=== PATIENT | female | born 1945 | race Caucasian/White ===

== ENCOUNTER → 2017-05-27 | Outpatient (CLI) | payer MEDICARE ==
[~2017-05-27] MED LIST: ARTIFICIAL TEAR15 ML OP; ASPIRINEC PO; EVISTA60 MG PO; FAMVIR500 MG PO; HCTZ PO; LODINE PO; PREDNISONE PO; VIT E PO; ZANTAC PO
--- NOTE | ~2017-05-27 | CT57 ---
[facility] A Service of [facility] RADIOLOGY TEXT RESULTS PATIENT: JACEK MARX LOCATION: [facility] : 49 UNIT #: [id number] AGE: [address]: ALONDRA LYNNE DO SEX: F ORDER DR: [id number] [facility] [address] [place], [place] [address] [id number] O MR#: [id number] Acc #: [id number] NAME: JACEK MARX : 1945 SEX: F STUDY DATE/TIME: 05/27/2017 13:43 UNIT: [facility] ROOM: STUDY DESCRIPTION: CT Chest Wo Cont Attending Physician: Alondra Lynne D.O. Referring Physician: Alondra Lynne D.O. Ordering Physician: Alondra Lynne D.O. Primary Care Physician: Alondra Lynne D.O. MEDICAL IMAGING REPORT This report is preliminary unless electronic signature is present EXAM CT chest INDICATIONS Pulmonary nodule. Restaging. Hypertension. TECHNIQUE CT of the chest without contrast. Coronal and sagittal reconstructions were obtained. This CT exam was performed with one or more of the following radiation dose reduction techniques: automatic control, adjustment of mA and/or kV according to patient size, and iterative reconstruction. COMPARISON CT chest dated 06/09/2016, 06/05/2015, PET/CT 11/14/2014. FINDINGS The 1.5 cm pulmonary nodule in the medial right lower lobe is unchanged from 11/14/2014. Smaller pulmonary nodules measure less than 4 mm are all unchanged from at least 06/05/2015. The stability confirms a benign etiology. No new or suspicious pulmonary findings. No pathologically enlarged mediastinal or hilar lymph nodes. No pericardial or pleural effusion. The thoracic aorta is normal in caliber. Limited imaging in the upper abdomen were obtained. No acute findings. No acute osseous abnormalities. IMPRESSION 1. Scattered pulmonary nodules are unchanged from at least November [facility] A Service of [facility] RADIOLOGY TEXT RESULTS PATIENT: JACEK MARX LOCATION: [facility] : 49 UNIT #: [id number] AGE: [address]: ALONDRA LYNNE DO SEX: F ORDER DR: 2014. This stability confirms a benign etiology. 2. The 1.5 cm pulmonary nodule in the right lower lobe is also unchanged from at least November of 2014. Dictated by... Bridger Merino M.D. THIS IS AN ELECTRONICALLY VERIFIED REPORT Bridger Merino M.D. at 05/28/2017 8:41 AM RPC/michael TD: 05/27/2017 19:05 JOB #: [id number] MEDICAL IMAGING REPORT Page 1 of 1 COPY
== END | disposition home or self-care (01) ==
LOC: CCAT 13:23
DX: R91.1 Solitary pulmonary nodule (principal); R91.8 Other nonspecific abnormal finding of lung field
CPT/HCPCS: 71250